=== PATIENT | male | born 1985 | race Two or more races ===

== ENCOUNTER → 2016-12-05 | Day surgery (SDC) | payer BC ==
[~2016-12-05] VITALS: Ht 182.9 cm; Wt 81.6 kg
[2016-12-05] VITALS (10 sets, daily range): BP systolic 115–137; BP diastolic 64–85
[~2016-12-05] MED LIST: CLOMIPHENE CITR50 MG PO; Hydromorphone 0.5mg/0.5ml inj IVP PRN; LR 1000ml ONE; Lidocaine 1% MPF 10mg/ml 5ml ONE; Propofol 10mg/ml 20ml IV ONE; VYVANSE30 MG ORAL
--- NOTE | 2016-12-05 10:43 | Pre-Procedure Note/Attestation ---
Pre-Procedure Note/Attestation Complete Prior to Procedure Planned Procedure: not applicable Procedure Narrative: flex sig Indications for Procedure Pre-Operative Diagnosis: hemorrhoids Attestation I attest that I discussed the nature of the procedure; its benefits; risks and complications; and alternatives (and the risks and benefits of such alternatives ), prior to the procedure, with the patient (or the patient's legal auto service representative). I attest that, if there was a reasonable possibility of needing a blood transfusion, the patient (or the patient's legal auto service representative) was given the [facility] standardized written summary, pursuant to the Andrey Jayme Blood Safety Act ([place] Health and Safety Code # 1645, as amended). I attest that I re-evaluated the patient just prior to the surgery and that there has been no change in the patient's H&P, except as documented below: JELLY REZA Dec 05, 2016 10:43
--- NOTE | 2016-12-05 10:45 | Short Stay Surgery H&P ---
History of Present Illness History of Present Illness Chief Complaint rectal bleed HPI Ailyn Encarnacion is a 31 year old male who was admitted on for Hemorrhoids Patient History Allergies: Coded Allergies: No Known Allergies (Unverified , 12/05/16) PAST MEDICAL HISTORY: Past Surgeries: Social History: Medication History Scheduled Clomiphene Citrate (Clomiphene Citrate), 50 MG PO 3XW, (Reported) Lisdexamfetamine Dimesylate (Vyvanse), 30 MG ORAL 2XW, (Reported) Review of Systems Cardiovascular: Reports: no symptoms Respiratory: Reports: no symptoms Skeletal: Reports: no symptoms Gastrointestinal: Reports: see HPI Genitourinary: Reports: no symptoms Neurologic: Reports: no symptoms Endocrine: Reports: no symptoms Hematologic: Reports: no symptoms Physical Exam Vital Signs Last Vital Signs Date Time Temp Pulse Resp B/P Pulse Ox O2 Delivery O2 Flow Rate FiO2 12/05/16 09:07 99.0 44 18 122/64 100 Room Air Skin: normal HENT: normal Heart: normal Lungs: normal Abdomen: normal Extremities: normal Plan Plan of Care flex sig Final Diagnosis: Attestation Are the patient's medical conditions optimized for surgery? Attestation Response: yes JELLY REZA Dec 05, 2016 10:45
--- NOTE | 2016-12-05 11:16 | Anethesia Preoperative Eval ---
Anesthesia Pre-op PMH/ROS General Date of Evaluation: Dec 05, 2016 Time of Evaluation: 11:14 Anesthesiologist: angel ASA Score: ASA 2 Mallampati Score Class I : Soft palate, uvula, fauces, pillars visible Class II: Soft palate, uvula, fauces visible Class III: Soft palate, base of uvula visible Class IV: Only hard plate visible Mallampati Classification: Class II Surgeon: manish Diagnosis: hemorraids Surgical Procedure: colon Anesthesia History: none Social History: smoking, current smoker Family History: no anesthesia problems Allergies: Coded Allergies: No Known Allergies (Unverified , 12/05/16) Medications: see eMAR Past Medical History Cardiovascular: Denies: CAD, HTN, CT, arrhythmia, other, valve dz Pulmonary: Denies: COPD, ARLEN, asthma, other Gastrointestinal/Genitourinary: Denies: CRI, ESRD, GERD, other Neurologic/Psychiatric: Denies: CVA, TIA, dementia, depression/anxiety, other Endocrine: Denies: DM, hypothyroidism, other, steroids HEENT: Denies: [place] (L), [place] (R), cataract (L), cataract (R), glaucoma, other Hematology/Immune: Denies: DVT, anemia, bleeding disorder, other Musculoskeletal/Integumentary: Denies: DDD, DJD, OA, RA, edema, other PSxH Narrative: none Anesthesia Pre-op Phys. Exam Physician Exam Last Vital Signs Date Time Temp Pulse Resp B/P Pulse Ox O2 Delivery O2 Flow Rate FiO2 12/05/16 09:07 99.0 44 18 122/64 100 Room Air Constitutional: NAD Neurologic: CN 2-12 intact Cardiovascular: RRR Respiratory: CTA Gastrointestinal: S/NT/ND Airway Exam Mallampati Classification 2 Mallampati Score: Class II MO: full ROM: full Dentures: no lower, no upper Anesthesia Pre-op A/P Studies Pre-op Studies: EKG - SR Risk Assessment & Plan Plan: mac Status Change Before Surgery: No Pre-Antibiotics Drug: none MARIPOSA BUTTS CRNA Dec 05, 2016 11:15
--- NOTE | 2016-12-05 11:23 | Endoscopy Procedure Note ---
Endoscopy Procedure Note Indication for Procedure: rectal bleed Procedures Performed: flexible sigmoidoscopy Operative Findings/Diagnosis: large polyp Specimen: yes Pt Tolerated Procedure Well: Yes Estimated Blood Loss: none Anesthesiologist: ricardo Anesthesia: MAC Implant(s) used?: No 50 yrs or older w/o bx or poly: Not Applicable 10yrs. F/U not recommended: Not Applicable JELLY REZA Dec 05, 2016 11:23
--- NOTE | 2016-12-05 12:02 | 48 Hour Post Anesthesia Eval ---
Post Anesthesia Evaluation Procedure: Sigmoid flex Date of Evaluation: Dec 05, 2016 Time of Evaluation: 12:02 Blood Pressure Systolic: 112 0: 65 Pulse Rate: 74 O2 Sat by Pulse Oximetry: 99 Airway: patent Nausea: No Vomiting: No Hydration Status: adequate Mental Status/LOC: patient returned to baseline Post-Anesthesia Complications: none Follow-up care needed: N/A MARIPOSA BUTTS CRNA Dec 05, 2016 12:02
--- NOTE | 2016-12-05 12:03 | Immediate Post-Op Evaluation ---
Immediate Post-Op Evalulation Immediate Post-Op Evalulation Procedure: Sigmoid flex Date of Evaluation: Dec 05, 2016 Time of Evaluation: 11:25 IV Fluids: 500 Blood Pressure Systolic: 127 Blood Pressure Diastolic: 68 Pulse Rate: 74 Respiratory Rate: 14 O2 Sat by Pulse Oximetry: 99 Temperature (Fahrenheit): 97.5 Nausea: No Vomiting: No Complications none Patient Status: awake, patent Hydration Status: adequate Drug: none MARIPOSA BUTTS CRNA Dec 05, 2016 12:03
--- NOTE | 2016-12-05 18:58 | Procedure Note ---
DATE OF PROCEDURE: 12/05/2016 SURGEON: Darin Walls M.D. PROCEDURE: Flexible endoscopy with snare polypectomy and banding of the hemorrhoids. ANESTHESIA: Per CERTIFIED SCRUM MASTER, Laura Tarrillion. INSTRUMENT: Olympus upper scope. INDICATION: Rectal bleeding. REASON FOR PROCEDURE: The procedure, risks, benefits, and possible consequences, including hemorrhage, aspiration, perforation and infection, and alternative treatments, were explained to the patient/legal guardian by Dr. Darin Walls and the patient/legal guardian understood and accepted these risks. DESCRIPTION OF PROCEDURE: After informed consent was obtained and the patient was adequately sedated, first rectal exam was performed, which was positive for internal hemorrhoids. Then, the scope was advanced from the rectum into the splenic flexure area. There was a large polyp in the rectum measured about 1.4 to 1.5 cm, sessile polyp removed with a hot snare polypectomy technique. Then, we started our banding procedure. We put total of three bands in the internal hemorrhoids. The patient tolerated the procedure very well without any complication. SUMMARY OF FINDINGS: 1. Large rectal polyp, see above for details. Status post polypectomy. 2. Internal hemorrhoids status post banding x3. RECOMMENDATIONS: 1. Follow up pathology. 2. The patient to come back for colonoscopy sometimes after the hemorrhoids are better. Darin Walls M.D. DR: NICHOLAS JOB#: [id number] CC:
== END | disposition home or self-care (01) ==
LOC: GAS 07:42
DX: K64.8 Other hemorrhoids (principal); K62.5 Hemorrhage of anus and rectum; D12.8 Benign neoplasm of rectum; F17.200 Nicotine dependence, unspecified, uncomplicated
CPT/HCPCS: 45338; 45350; J1170; J2704; J7120; 94003; 94150

== ENCOUNTER → 2016-12-16 | Day surgery (SDC) | payer BC ==
[~2016-12-16] VITALS: Ht 182.9 cm; Wt 81.6 kg
[2016-12-16] VITALS (9 sets, daily range): BP systolic 84–121; BP diastolic 45–63
[~2016-12-16] MED LIST changes: -Hydromorphone 0.5mg/0.5ml inj IVP PRN
--- NOTE | 2016-12-16 10:04 | Pre-Procedure Note/Attestation ---
Pre-Procedure Note/Attestation Complete Prior to Procedure Planned Procedure: not applicable Procedure Narrative: egd/colonoscopy Indications for Procedure Pre-Operative Diagnosis: colon polyp, GERD Attestation I attest that I discussed the nature of the procedure; its benefits; risks and complications; and alternatives (and the risks and benefits of such alternatives ), prior to the procedure, with the patient (or the patient's legal admitting representative). I attest that, if there was a reasonable possibility of needing a blood transfusion, the patient (or the patient's legal admitting representative) was given the [facility] standardized written summary, pursuant to the Andrey Jayme Blood Safety Act ([place] Health and Safety Code # 1645, as amended). I attest that I re-evaluated the patient just prior to the surgery and that there has been no change in the patient's H&P, except as documented below: JELLY REZA Dec 16, 2016 10:04
--- NOTE | 2016-12-16 10:06 | Short Stay Surgery H&P ---
History of Present Illness History of Present Illness Chief Complaint GERD, colon polyp HPI Ailyn Encarnacion is a 31 year old male who was admitted on for Gerd, Rectal Polyps Patient History Allergies: Coded Allergies: No Known Allergies (Unverified , 12/05/16) PAST MEDICAL HISTORY: (1) Colon polyps (2) GERD (gastroesophageal reflux disease) (3) Hemorrhoid Past Surgeries: Social History: Medication History Scheduled Clomiphene Citrate (Clomiphene Citrate), 50 MG PO 3XW, (Reported) Lisdexamfetamine Dimesylate (Vyvanse), 30 MG ORAL 2XW, (Reported) Review of Systems Cardiovascular: Reports: no symptoms Respiratory: Reports: no symptoms Skeletal: Reports: no symptoms Gastrointestinal: Reports: no symptoms Genitourinary: Reports: no symptoms Neurologic: Reports: no symptoms Endocrine: Reports: no symptoms Hematologic: Reports: no symptoms Physical Exam Vital Signs Last Vital Signs Date Time Temp Pulse Resp B/P Pulse Ox O2 Delivery O2 Flow Rate FiO2 12/16/16 09:36 97.9 43 18 105/63 99 Room Air Skin: normal HENT: normal Heart: normal Lungs: normal Abdomen: normal Extremities: normal Plan Plan of Care egd/colon Final Diagnosis: Attestation Are the patient's medical conditions optimized for surgery? Attestation Response: yes JELLY REZA Dec 16, 2016 10:05
--- NOTE | 2016-12-16 10:50 | Anethesia Preoperative Eval ---
Anesthesia Pre-op PMH/ROS General Date of Evaluation: Dec 16, 2016 Time of Evaluation: 10:48 Anesthesiologist: angel ASA Score: ASA 2 Mallampati Score Class I : Soft palate, uvula, fauces, pillars visible Class II: Soft palate, uvula, fauces visible Class III: Soft palate, base of uvula visible Class IV: Only hard plate visible Mallampati Classification: Class II Surgeon: manish Diagnosis: colon polyp Surgical Procedure: egd/colonoscopy Anesthesia History: none Social History: smoking Family History: no anesthesia problems Allergies: Coded Allergies: No Known Allergies (Unverified , 12/05/16) Medications: see eMAR Past Medical History Cardiovascular: Denies: CAD, HTN, [place], arrhythmia, other, valve dz Pulmonary: Denies: COPD, ARLEN, asthma, other Neurologic/Psychiatric: Denies: CVA, TIA, dementia, depression/anxiety, other Endocrine: Denies: DM, hypothyroidism, other, steroids HEENT: Denies: [place] (L), [place] (R), cataract (L), cataract (R), glaucoma, other Hematology/Immune: Denies: DVT, anemia, bleeding disorder, other Musculoskeletal/Integumentary: Denies: DDD, DJD, OA, RA, edema, other PSxH Narrative: sigmoid scopy Anesthesia Pre-op Phys. Exam Physician Exam Last Vital Signs Date Time Temp Pulse Resp B/P Pulse Ox O2 Delivery O2 Flow Rate FiO2 12/16/16 09:36 97.9 43 18 105/63 99 Room Air Constitutional: NAD Neurologic: CN 2-12 intact Cardiovascular: RRR Respiratory: CTA Gastrointestinal: S/NT/ND Airway Exam Mallampati Classification 2 Mallampati Score: Class II MO: full ROM: full Dentures: no lower, no upper Anesthesia Pre-op A/P Risk Assessment & Plan Plan: mac Status Change Before Surgery: No Pre-Antibiotics Drug: none MARIPOSA BUTTS CRNA Dec 16, 2016 10:50
--- NOTE | 2016-12-16 11:01 | Endoscopy Procedure Note ---
Endoscopy Procedure Note Indication for Procedure: gerd,rectal polyp Procedures Performed: EGD, colonoscopy Operative Findings/Diagnosis: gastritis, Specimen: yes Pt Tolerated Procedure Well: Yes Estimated Blood Loss: none Anesthesiologist: seferino Anesthesia: local Implant(s) used?: No 50 yrs or older w/o bx or poly: Yes 10yrs. F/U not recommended: Yes If not recommended, why?: Above average risk 10 yrs. F/U needed: Yes 18 years or older w/prev. colo: No JELLY REZA Dec 16, 2016 11:01
--- NOTE | 2016-12-16 11:13 | Immediate Post-Op Evaluation ---
Immediate Post-Op Evalulation Immediate Post-Op Evalulation Procedure: EGD/Colonoscopy Date of Evaluation: Dec 16, 2016 Time of Evaluation: 11:05 IV Fluids: 300 Blood Pressure Systolic: 90 Blood Pressure Diastolic: 50 Pulse Rate: 40 Respiratory Rate: 14 O2 Sat by Pulse Oximetry: 99 Temperature (Fahrenheit): 97.0 Nausea: No Vomiting: No Complications none Patient Status: awake Hydration Status: adequate Drug: none MARIPOSA BUTTS CRNA Dec 16, 2016 11:13
--- NOTE | 2016-12-16 12:07 | 48 Hour Post Anesthesia Eval ---
Post Anesthesia Evaluation Procedure: EGD/Colonoscopy Date of Evaluation: Dec 16, 2016 Time of Evaluation: 12:06 Blood Pressure Systolic: 115 0: 60 Pulse Rate: 65 O2 Sat by Pulse Oximetry: 99 Airway: patent Nausea: No Vomiting: No Hydration Status: adequate Mental Status/LOC: patient returned to baseline Post-Anesthesia Complications: none MARIPOSA BUTTS CRNA Dec 16, 2016 12:07
--- NOTE | 2016-12-16 20:48 | Procedure Note ---
SURGEON: Darin Walls M.D. PROCEDURE: Upper endoscopy with biopsy and colonoscopy. ANESTHESIA: Per GLAZIER SUPERVISOR, Laura Tarrillion. INSTRUMENT: Olympus adult flexible endoscope and colonoscope. INDICATION: 1. Colonic acid reflux disease. 2. History of recent large rectal polyp. The procedure, risks, benefits, and possible consequences, including hemorrhage, aspiration, perforation and infection, and alternative treatments, were explained to the patient/legal guardian by Dr. Darin Walls and the patient/legal guardian understood and accepted these risks. DESCRIPTION OF PROCEDURE: After informed consent was obtained and the patient was adequately sedated, first Olympus upper endoscope was advanced from mouth into the second portion of the duodenum and retroflexion was performed of the stomach. The patient had evidence of small paraesophageal hernia. No evidence of any distal esophagitis. There was evidence of some linear shallow ulceration in the upper esophagus around the paraesophageal hernia. There were also multiple small raised areas in the antrum with a central ulceration, may be erosions with edema around them. Two of them were biopsied. Random biopsy from antrum and body was also obtained. At this time, the upper endoscope was retrieved and the patient was turned over for colonoscopy. First, a rectal exam was performed, which was normal. Then, the scope was advanced from the rectum into the cecum, documented by appendiceal orifice, ileocecal valve, and right upper quadrant palpation. Quality of prep was very good. No other further polyps were seen in this colonoscopy examination. The area of polypectomy from last week looked healing, but still erythematous. Also from the hemorrhoids, the bands were off and there was a little bit of leakage of the blood from the old banding site. SUMMARY OF FINDINGS: 1. Small paraesophageal hernia. 2. Linear erosions/shallow ulceration in the area of the paraesophageal hernia. 3. Multiple raised areas in the antrum, status post biopsy. 4. Gastritis, status post biopsy. 5. Internal hemorrhoids. RECOMMENDATIONS: Follow up biopsies and treat accordingly. Darin Walls M.D. DR: JANET JOB#: [id number] CC:
== END | disposition home or self-care (01) ==
LOC: GAS 08:07
DX: K21.9 Gastro-esophageal reflux disease without esophagitis (principal); K44.9 Diaphragmatic hernia without obstruction or gangrene; K22.10 Ulcer of esophagus without bleeding; K29.50 Unspecified chronic gastritis without bleeding; K64.8 Other hemorrhoids; Z86.010 Personal history of colon polyps; F17.200 Nicotine dependence, unspecified, uncomplicated
CPT/HCPCS: 43239; 45378; J2704; J7120; 94003; 94150